=== PATIENT | female | born 1995 | race Two or more races ===

== ENCOUNTER 2019-08-06 14:06 | Inpatient (IN) | payer OTHER ==
[~2019-08-06] VITALS: Ht 154.9 cm; Wt 79.8 kg
[2019-09-01] MEDS ORDERED: PRENATAL TABLE1 EAC1 PO (09:21)
== END 2019-09-03 10:58 | disposition home or self-care (01) | DRG 807 ==
LOC: OB/GYN 09-01 07:13 → LDR 09-01 07:13 → OB/GYN 09-01 21:18
PROVIDERS: ADMIT Obstetrics & Gynecology
PROC: 10E0XZZ Delivery of Products of Conception, External Approach (ICD-10-PCS; principal; 2019-09-01)
PROC: 4A1HXCZ Monitoring of Products of Conception, Cardiac Rate, External Approach (ICD-10-PCS; 2019-09-01)
DX: O80 Encounter for full-term uncomplicated delivery (principal); Z37.0 Single live birth; Z3A.39 39 weeks gestation of pregnancy